=== PATIENT | female | born 1990 | race Hispanic/Latino ===

== ENCOUNTER 2018-01-30 03:05 | Emergency (ER) | payer OTHER ==
[2018-01-30 03:19] VITALS: TEMP 97.7
--- NOTE | 2018-01-30 03:47 | ED PDOC ---
HPI: Chest Pain Time Seen by Provider: 01/30/18 03:09 Chief Complaint (Nursing): Chest Pain Chief Complaint (Provider): Left sided chest pain History Per: Patient History/Exam Limitations: no limitations Onset/Duration Of Symptoms: Days Current Symptoms Are (Timing): Still Present Additional Complaint(s): 27 yo female with no medical problems presents for evaluation of left sided chest pain. Pt states it has been going on/off for 2 weeks but she woke up and the pain was worse. Pt states when she woke up she felt SOB. Pt states movement and deep breathing does not change the pain. Pt began taking OCP almost 3 weeks ago. Pt does not smoke. No recent travel. No known family history of clotting disorders however pt states her family is private about health issues. Pt did not take anythign for pain and does not want anything in ER. Past Medical History Reviewed: Historical Data, Nursing Documentation, Vital Signs Vital Signs: Last Vital Signs Temp 97.7 F 01/30/18 03:11 Pulse 58 L 01/30/18 03:11 Resp 16 01/30/18 03:11 BP 110/58 L 01/30/18 03:11 Pulse Ox 100 01/30/18 03:11 - Medical History PMH: No Chronic Diseases - Surgical History Surgical History: No Surg Hx - Family History Family History: States: No Known Family Hx - Living Arrangements Living Arrangements: With Family - Allergies Allergies/Adverse Reactions: Allergies Allergy/AdvReac Type Severity Reaction Status Date / Time No Known Allergies Allergy Verified 01/30/18 03:19 Review of Systems ROS Statement: Except As Marked, All Systems Reviewed And Found Negative Constitutional: Negative for: Fever, Chills Cardiovascular: Positive for: Chest Pain. Negative for: Palpitations Respiratory: Positive for: Shortness of Breath. Negative for: Cough, SOB with Exertion Physical Exam - Reviewed Nursing Documentation Reviewed: Yes Vital Signs Reviewed: Yes - Physical Exam Appears: Positive for: Well, Non-toxic, No Acute Distress Head Exam: Positive for: ATRAUMATIC, NORMAL INSPECTION, NORMOCEPHALIC Skin: Positive for: Normal Color, Warm, DRY Eye Exam: Positive for: Normal appearance ENT: Positive for: Normal ENT Inspection Neck: Positive for: Normal, Painless ROM Cardiovascular/Chest: Positive for: Regular Rate, Rhythm Respiratory: Positive for: CNT, Normal Breath Sounds Back: Positive for: Normal Inspection Extremity: Positive for: Normal ROM Neurologic/Psych: Positive for: Alert, Oriented - Laboratory Results Result Diagrams: 01/30/18 03:40 01/30/18 03:40 - ECG O2 Sat by Pulse Oximetry: 100 Medical Decision Making Medical Decision Making: EKG - Sinus bradycardia CXR - Without acute abnormalities Labs including DDimer normal. Disposition - Clinical Impression Clinical Impression: Chest pain - Patient ED Disposition Is Patient to be Admitted: No Counseled Patient/Family Regarding: Diagnosis, Need For Followup, Rx Given - Disposition Referrals: Juaquin Olivia MD [Staff Provider] - Disposition: Routine/Home Disposition Time: 05:13 Condition: GOOD Instructions: Chest Pain That Is Not Caused by the Heart (DC) Forms: bookjam (Mauritian)
[2018-01-30 03:54] LABS: BASO % 0.9 % (0.0-2.0); EOS # 0.1 K/uL (0.0-0.7); EOS % 1.9 % (0.0-4.0); HEMOGLOBIN 13.4 g/dL (12.0-16.0); LYMPH # 2.2 K/uL (1.0-4.3); LYMPH % 42.3 % (20.0-40.0); MEAN CELL VOLUME 93.6 fl (81.0-99.0); MEAN CORPUSCULAR HEMOGLOBIN 31.4 pg (27.0-31.0); MEAN CORPUSCULAR HGB CONC 33.6 g/dL (33.0-37.0); MEAN PLATELET VOLUME 8.7 fl (7.2-11.7); MONO # 0.5 K/uL (0.0-0.8); MONO % 9.7 % (0.0-10.0); NEUT # 2.4 K/uL (1.8-7.0); NEUT % 45.2 % (50.0-75.0); NRBC % 0.1 % (0.0-0.0); RBC 4.27 Mil/uL (3.80-5.20); RED CELL DISTRIBUTION WIDTH 12.5 % (11.5-14.5); WHITE BLOOD COUNT 5.3 K/uL (4.8-10.8)
[2018-01-30 04:06] LABS: ALB/GLOB RATIO 1.3 (1.0-2.1); ALBUMIN 4.3 g/dL (3.5-5.0); ALT/SGPT 18 U/L (9-52); AST/SGOT 22 U/L (14-36); BLOOD UREA NITROGEN 14 mg/dl (7-17); CALCIUM 9.7 mg/dL (8.4-10.2); GFR NON-AFRICAN AMERICAN > 60
[2018-01-30 05:25] VITALS: BP 113/60; PULSE 53; RESP 18; O2SAT 99
--- NOTE | 2018-01-30 09:56 | RAD ---
Date of service: 01/30/2018 HISTORY: left sided chest pain COMPARISON: No prior study comparison. TECHNIQUE: Chest PA and lateral FINDINGS: LUNGS: Lungs appear hyperinflated. No acute consolidation.. The suspect minimal biapical pleural thickening right greater than PLEURA: No significant pleural effusion identified. No pneumothorax apparent. CARDIOVASCULAR: No aortic atherosclerotic calcification present. Normal cardiac size. No pulmonary vascular congestion. OSSEOUS STRUCTURES: There is mild dextroscoliosis centered in the mid to lower thoracic region. VISUALIZED UPPER ABDOMEN: Normal. OTHER FINDINGS: None. IMPRESSION: Hyperinflation. No consolidation. Mild dextroscoliosis centered in the mid to lower thoracic region
--- NOTE | 2018-01-31 09:59 | CARD ---
APPROVED REPORT Date of service: 01/30/2018 EKG Measurement Heart [id number] PA [id number] [id number] <Conclusion> Sinus bradycardia Otherwise normal ECG
== END 2018-01-30 05:31 | disposition home or self-care (01) ==
LOC: H.ER 03:05
DX: R07.89 Other chest pain (principal)
CPT/HCPCS: 71046; 80053; 81025; 85025; 85378; 93005; 96374; 99284; J1885